=== PATIENT | female | born 1945 | race Caucasian/White ===

== ENCOUNTER 2018-01-06 02:46 | Emergency (ER) | payer MEDICARE ==
[2018-01-06] VITALS (7 sets, daily range): BP systolic 126–163; BP diastolic 69–75
[~2018-01-06] VITALS: Ht 154.9 cm; Wt 70.9 kg
[2018-01-06] MEDS ORDERED: glucagon, human recombinant 1mg kit IV ONE (03:00)
[2018-01-06] MEDS ORDERED: traZODone 50mg tablet PO ONE (03:05)
[2018-01-06 03:15] LABS: BASOPHILS # (AUTO) 0.1 X10'3 (0-0.2); BASOPHILS % (AUTO) 0.6 % (0-1); EOSINOPHILS # (AUTO) 0.2 X10'3 (0-0.9); EOSINOPHILS % (AUTO) 1.7 % (0-6); HEMATOCRIT 41.5 % (35.0-45.0); LYMPHOCYTES # (AUTO) 2.5 X10'3 (1.1-4.8); LYMPHOCYTES % (AUTO) 27.6 % (21-51); MEAN CORPUSCULAR HEMOGLOBIN 31.9 PG (27.0-31.0); MEAN CORPUSCULAR HGB CONC 33.7 % (33.0-36.5); MEAN CORPUSCULAR VOLUME 94.8 FL (78-98); MEAN PLATELET VOLUME 7.7 FL (7.4-10.4); MONOCYTES # (AUTO) 0.7 X10'3 (0-0.9); MONOCYTES % (AUTO) 7.7 % (2-12); NEUTROPHILS # (AUTO) 5.6 X10'3 (1.8-7.7); NEUTROPHILS % (AUTO) 62.4 % (42-75); PLATELET COUNT 172 X10'3 (140-440); RED BLOOD COUNT 4.38 X10'6 (4.20-5.60); RED CELL DISTRIBUTION WIDTH 14.2 % (11.5-14.5); WHITE BLOOD COUNT 8.9 X10'3 (4.5-11.0)
[2018-01-06 03:29] LABS: ALANINE AMINOTRANSFERASE 30 U/L (12-78); ALBUMIN 4.2 G/DL (3.4-5.0); ALBUMIN/GLOBULIN RATIO 1.4 (1.1-1.5); ALKALINE PHOSPHATASE 61 IU/L (46-116); ANION GAP 6 (8-16); ASPARTATE AMINO TRANSFERASE 16 U/L (10-37); BILIRUBIN,TOTAL 0.6 MG/DL (0.1-1.0); BLOOD UREA NITROGEN 18 MG/DL (7-18); BUN/CREATININE RATIO 14.4 (6.6-38.0); CALCIUM 9.4 MG/DL (8.5-10.1); CHLORIDE 107 MMOL/L (99-107); CREATININE 1.25 MG/DL (0.40-0.90); GLUCOSE 118 MG/DL (70-104); POTASSIUM 3.9 MMOL/L (3.5-5.1); SODIUM 141 MMOL/L (135-145); TOTAL CARBON DIOXIDE 28.2 MMOL/L (24-32); TOTAL PROTEIN 7.3 G/DL (6.4-8.2); eGFR 42 ML/MIN
[2018-01-06] MEDS ORDERED: LEVO88TA2 PO (04:06)
[2018-01-06] MEDS ORDERED: HYDR-565 PO (04:06)
[2018-01-06] MEDS ORDERED: TRIA10.8 (04:06)
[2018-01-06] MEDS ORDERED: ALBU18HF2 INH (04:06)
[2018-01-06] MEDS ORDERED: OMEG-182 (04:06)
[2018-01-06] MEDS ORDERED: CHOL2000 PO (04:06)
[2018-01-06] MEDS ORDERED: LOSA25TA96 PO (04:06)
[2018-01-06] MEDS ORDERED: BUDE10.2 INH (04:06)
[2018-01-06] MEDS ORDERED: CLOP75TA35 PO (04:06)
[2018-01-06] MEDS ORDERED: LOPE1LIQ81 PO (04:06)
[2018-01-06] MEDS ORDERED: METO-395 PO (04:06)
[2018-01-06] MEDS ORDERED: ATOR40TA3 PO (04:06)
[2018-01-06] MEDS ORDERED: LORA10TA7 PO (04:06)
[2018-01-06] MEDS ORDERED: FISH1CAP15 PO (04:06)
[2018-01-06] MEDS ORDERED: LIDOcaine Viscous 15ml cup ONE (07:28)
[2018-01-06] MEDS ORDERED: fentaNYL/PF 50MCG/1 ML 2ML syringe ONE (07:28)
[2018-01-06] MEDS ORDERED: MIDAZolam 5mg/5ml vial ONE (07:28)
[2018-01-06] MEDS ORDERED: OMEP20CA10 PO (08:14)
== END 2018-01-06 08:46 | disposition home or self-care (01) ==
LOC: ER 02:47
DX: K22.2 Esophageal obstruction (principal); I25.10 Atherosclerotic heart disease of native coronary artery without angina pectoris; I10 Essential (primary) hypertension; F17.200 Nicotine dependence, unspecified, uncomplicated; Z95.1 Presence of aortocoronary bypass graft; Z88.6 Allergy status to analgesic agent; Z88.8 Allergy status to other drugs, medicaments and biological substances
CPT/HCPCS: 36415; 43239; 43247; 80053; 85025; 96374; 99152; 99285; J1610; J2250; J3010; J7030; 88305; 88312; 88313; 88342; 99284; A4620; G0500